=== PATIENT | male | born 2000 | race Hispanic/Latino ===

== ENCOUNTER 2025-09-29 17:14 | Emergency (ER) | payer SELFPAY ==
[~2025-09-29] VITALS: Ht 167.6 cm; Wt 93.0 kg
--- NOTE | 2025-09-29 17:20 | ERN ---
ED Note History of Present Illness Stated Complaint: BACK PAIN Chief Complaint: Back Pain or Injury Time Seen by MD: 17:17 Dictation: PATIENT IS A 25-YEAR-OLD MALE COMING IN WITH COMPLAINTS OF LOW BACK PAIN. 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 HE WAS STRAPPED AND WAS NOT EJECTED. HE WAS AMBULATORY AT THE SCENE. HE SAID HE HAD NO PAIN AT THE TIME AND DID NOT TAKE ANYTHING BECAUSE HE WAS WAITING TO SEE IF HE WOULD START HURTING ON-CALL. NOT TAKEN ANYTHING PRIOR TO ARRIVAL FOR TODAY IT NO PRIMARY CARE DOCTOR. THERE WAS NO MIDLINE SPINE PAIN NO STEP-OFFS THERE WAS NO ECCHYMOSIS TO HIS THORAX OR BACK. Allergies: Coded Allergies: No Known Drug Allergies (Unverified Allergy, Unknown, 09/29/25) Past Medical History RN Note Reviewed/Agreed w/PFSH: Yes Review of System Dictation CONSTITUTIONAL: NEGATIVE EXCEPT FOR HPI HEAD/FACE: NEGATIVE EXCEPT FOR HPI EENT: NEGATIVE EXCEPT FOR HPI RESPIRATORY: NEGATIVE EXCEPT FOR HPI GASTROINTESTINAL/ABDOMINAL: NEGATIVE EXCEPT FOR HPI GENITOURINARY: NEGATIVE EXCEPT FOR HPI MUSCULOSKELETAL: NEGATIVE EXCEPT FOR HPI LUMBAR PAIN INTEGUMENTARY: NEGATIVE EXCEPT FOR HPI NEUROLOGICAL/PSYCH: NEGATIVE EXCEPT FOR HPI HEMATOLOGIC/LYMPHATIC: NEGATIVE EXCEPT FOR HPI ALL SYSTEMS NEGATIVE, EXCEPT NOTED ABOVE. 13 POINT REVIEW OF SYSTEMS ASSESSED AND ALL NEGATIVE EXCEPT FOR ABOVE. Initial Vital Sign VS Vital Signs Date Time Temp Pulse Resp B/P (MAP) Pulse Ox O2 Delivery O2 Flow Rate FiO2 09/29/25 17:18 98.8 78 16 142/82 99 Room Air 0 Physical Exam Dictation VITAL SIGNS REVIEWED GENERAL APPEARANCE: ALERT, ORIENTED X 3, MILD ACUTE DISTRESS, WELL DEVELOPED, NOURISHED. HEAD AND FACE: NON-TRAUMATIC. EYES: PERRL, PINK CONJUNCTIVAS, EYELID NO TRAUMA, ANTERIOR CHAMBER WITH ARCUS SENILIS. EARS: PINNAS INTACT AND NO SIGNS OF TRAUMA OR ERYTHEMA EAR CANALS CLEAR AND NO DISCHARGE TM NO ERYTHEMA NOSE: NO DISCHARGE, NO BLEEDING. OROPHARYNX: MOUTH NORMAL, TONGUE PINK, PHARYNX CLEAR,NO ERYTHEMA, TONSILS NO EXUDATES, NO ABSCESSES NOTED, MUCOUS MEMBRANE MOIST NECK: SUPPLE, NON-TENDER, NO THYROMEGALY, NO MASSES, NO JVD, NO BRUITS BREAST:DEFERRED CHEST:NO TENDERNESS, NO CREPITUS, NO PARADOXICAL MOVEMENT, NO RETRACTIONS LUNGS:CLEAR, WELL-VENTILATED, SYMMETRIC, NO RALES, NO WHEEZING, NO RHONCHI, NO STRIDOR, GOOD BREATH SOUNDS BILATERALLY HEART: REGULAR RATE, REGULAR RHYTHM, NO MURMUR, NO GALLOPS VASCULAR: NO PERIPHERAL EDEMA, ABDOMEN: SOFT, POSITIVE BOWEL SOUNDS, NONDISTENDED, NO GUARDING, NONTENDER, NO REBOUND, NO MASSES NO HEPATOMEGALY, NO SPLENOMEGALY, NO LOVELACE'S SIGN, NO HERNIAS. RECTAL: DEFERRED GENITAL: DEFERRED NEUROLOGICAL: NORMAL SPEECH, MOTOR FUNCTION INTACT, SENSORY FUNCTION INTACT MUSCULOSKELETAL: NECK NONTENDER, FULL RANGE OF MOTION, DIFFUSE LUMBOSACRAL TENDERNESS., FULL RANGE OF MOTION, NO MIDLINE SPINE PAIN NO STEP-OFFS. NEGATIVE STRAIGHT LEG RAISE BILATERALLY 10 DEGREE EXTREMITIES: NONTENDER, FULL RANGE OF MOTION SKIN: COLOR PINK, DRY, NO TURGOR, NO RASH, NO LACERATIONS, NO ABRASIONS, NO CONTUSIONS. LYMPHATIC: DEFERRED Results (Laboratory/Radiology) Laboratory/Radiology 1750/LUMBAR X-RAY NEGATIVE Labs Reviewed?: Yes ED Course ED Course Orders Procedure Category Date Status Time Ibuprofen 800 Mg Tab PHA 09/29/25 Complete (Motrin) 17:30 Cyclobenzaprine Hcl PHA 09/29/25 Complete (Cyclobenzaprine Hcl 17:30 Lumbar Spine 2-3vws RAD 09/29/25 Taken 17:17 Current Medications Medications (Trade) Dose Ordered Sig/Yamilka Route PRN Reason Start Time Stop Time Status Last Admin Dose Admin Cyclobenzaprine HCl (Cyclobenzaprine HCl) 10 mg ONCE ONCE PO 09/29/25 17:30 09/29/25 17:31 DC Ibuprofen (moTRIN) 800 mg ONCE ONCE PO 09/29/25 17:30 09/29/25 17:31 DC Vital Signs Date Time Temp Pulse Resp B/P (MAP) Pulse Ox O2 Delivery O2 Flow Rate FiO2 09/29/25 17:18 98.8 78 16 142/82 99 Room Air 0 Medical Decision Making [facility] 1750/MEDICAL DECISION-MAKING BASED ON HPI AND EMPIRIC CONTROL OF LOW BACK PAIN. 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 TAKE MEDICATIONS DIRECTED HERE IN THE EMERGENCY ROOM. OKAY TO CONTINUE HOME MEDICATIONS UNLESS OTHERWISE DISCUSSED DURING YOUR VISIT IN THE EMERGENCY ROOM TODAY. RETURN TO YOUR NEAREST EMERGENCY ROOM IF SYMPTOMS WORSEN OR IF THERE IS NO IMPROVEMENT. CALL 911 IF YOU NEED IMMEDIATE ASSISTANCE. TAKE TYLENOL OR MOTRIN [id number] NEEDED AND IF NO CONTRAINDICATIONS ARE PRESENT. INCREASE ORAL HYDRATION. A WOUND CULTURE OR URINE CULTURE WAS ORDERED HERE IN THE EMERGENCY ROOM DEPARTMENT PLEASE FOLLOW-UP WITH PRIMARY CARE PROVIDER AND ADVISE THEM TO GET REPEAT PORTS FROM OUR FACILITY. IF YOU HAD ANY TEZ WRAP/SPLINTS THAT WERE APPLIED HERE, PLEASE DO NOT REMOVE THEM UNTIL YOU SEE YOUR PRIMARY CARE OR SPECIALTY. TAKE IBUPROFEN AND FLEXERIL EVERY 8 HOURS FOR THE NEXT TWO DAYS. TAKE FLEXERIL ONLY AT NIGHT IF IT MAKES YOU TOO SLEEPY WARM COMPRESSES TO PAIN THREE TO 4 TIMES A DAY SEE YOUR PRIMARY CARE DOCTOR FOR FOLLOW UP DO NOT OPERATE HEAVY MACHINERY OR DRIVE A CAR WHILE TAKING FLEXERIL Time of Disposition: 17:50 I have reviewed the case, and I agree with, Diagnosis and Plan CATHERINE MENA Sep 29, 2025 17:20
[2025-09-29] MEDS ORDERED: IBUP-2077 PO (17:51)
[2025-09-29] MEDS ORDERED: CYCL-309 PO (17:51)
[2025-09-29 17:59] VITALS: TEMP 98.8
[2025-09-29] MEDS: CYCLOBENZAPRINE HCL 10 MG TABLET PO ONE (17:59)
[2025-09-29 18:25] VITALS: BP 115/75; PULSE 65; RESP 17; TEMP 98.2; O2SAT 98
--- NOTE | 2025-09-29 18:42 | HMCIMG ---
EXAM: CR Lumbar Spine, 2 View. CLINICAL HISTORY: LUMBAR PAIN AFTER ACCIDENT AT WORK COMPARISON: None provided. FINDINGS: BONES: No acute fracture or aggressive appearing osseous lesion. ALIGNMENT: Alignment is within normal limits. No significant scoliosis. DISCS / DEGENERATIVE CHANGES: The disc spaces are preserved. SOFT TISSUES: The soft tissues are unremarkable. IMPRESSION: No acute lumbar spine abnormality evident. /[place]
== END 2025-09-29 18:29 | disposition home or self-care (01) ==
LOC: EDH 17:14
DX: S39.012A Strain of muscle, fascia and tendon of lower back, initial encounter (principal); X58.XXXA Exposure to other specified factors, initial encounter; Y93.89 Activity, other specified; Y92.89 Other specified places as the place of occurrence of the external cause; Y99.0 Civilian activity done for income or pay
CPT/HCPCS: 72100; 99283